=== PATIENT | male | born 1990 | race Caucasian/White ===

== ENCOUNTER 2017-04-11 12:53 | Emergency (ER) | payer SELFPAY ==
[~2017-04-11] VITALS: Ht 180.3 cm; Wt 76.3 kg
[2017-04-11] MEDS ORDERED: PERCOCET 5/31 TABLET PO (13:19)
[2017-04-11 13:50] VITALS: BP 118/77
== END 2017-04-11 13:52 | disposition home or self-care (01) ==
LOC: EME 12:53
PROC: 0H98XZZ Drainage of Buttock Skin, External Approach (ICD-10-PCS; principal; 2017-04-11)
DX: L02.31 Cutaneous abscess of buttock (principal)
CPT/HCPCS: 99281; 99284